=== PATIENT | female | born 2000 | race Caucasian/White ===

== ENCOUNTER 2022-02-18 13:02 | Emergency (ER) | payer OTHER ==
[~2022-02-18] VITALS: Ht 167.6 cm; Wt 77.1 kg
--- NOTE | 2022-02-18 13:08 | NUR ---
BIB rescuer fentanyl OD , given narcan at the scene. alert oriented with IV line at right arm . vital signs stable no signs and symptoms of distress
--- NOTE | 2022-02-18 13:15 | NUR ---
at bedside for eval
--- NOTE | 2022-02-18 13:20 | NUR ---
will continue to monitor
[2022-02-18] MEDS ORDERED: NALO4SPR BNOSTRILS (15:29)
--- NOTE | 2022-02-18 15:38 | NUR ---
CALLED [facility] [phone] WILL SEND RN RECOVERY TO COLLECT PATIENT.
--- NOTE | 2022-02-18 16:25 | NUR ---
PT WAS OBSERVED. MEDICALLY CLEARED BY DR SHEFFIELD FOR DISCHARGED. VITALS REMAINS STABLE. DISCHARGED TO REHAB FACILITY STAFF IN STABLE CONDITION.
[2022-02-18 16:35] VITALS: BP 128/64
== END 2022-02-18 16:35 | disposition home or self-care (01) ==
LOC: ER 13:04
DX: T40.411A Poisoning by fentanyl or fentanyl analogs, accidental (unintentional), initial encounter (principal); R11.2 Nausea with vomiting, unspecified; F32.A Depression, unspecified; F41.9 Anxiety disorder, unspecified; Y92.89 Other specified places as the place of occurrence of the external cause